=== PATIENT | male | born 1960 | race Caucasian/White ===

== ENCOUNTER 2022-04-06 21:27 | Emergency (ER) | payer SELFPAY ==
[~2022-04-06] VITALS: Wt 77.1 kg
[2022-04-06] MEDS ORDERED: SEPTDS PO (22:39)
[2022-04-06] MEDS ORDERED: CEPHALEXIN500 M1 PO (22:39)
[2022-04-06] MEDS ORDERED: NAPROSYN500 MG PO (22:39)
== END 2022-04-06 23:05 | disposition home or self-care (01) ==
LOC: ED 21:27
DX: S70.11XA Contusion of right thigh, initial encounter (principal); S80.01XA Contusion of right knee, initial encounter; S80.11XA Contusion of right lower leg, initial encounter; W55.12XA Struck by horse, initial encounter; Y93.89 Activity, other specified; Y92.89 Other specified places as the place of occurrence of the external cause; Y99.8 Other external cause status

== ENCOUNTER 2023-03-24 05:39 | Emergency (ER) | payer OTHER ==
[~2023-03-24] VITALS: Ht 172.7 cm; Wt 81.6 kg
[~2023-03-24 05:39] MED LIST: CEPHALEXIN500 M1 PO; NAPROSYN500 MG PO; SEPTDS PO
[2023-03-24] MEDS ORDERED: OMEPRAZOLE40 MG PO (06:15)
== END 2023-03-24 06:35 | disposition home or self-care (01) ==
LOC: ED 05:39
DX: K21.9 Gastro-esophageal reflux disease without esophagitis (principal); M54.50 Low back pain, unspecified